=== PATIENT | male | born 1960 | race Caucasian/White ===

== ENCOUNTER 2021-10-30 18:32 | Inpatient (IN) ==
[2021-10-30] MEDS ORDERED: Ondansetron 4 MG/2 ML VIAL IVP PRN (20:27)
[2021-10-30] MEDS ORDERED: Naloxone 0.4 MG/ML INJ IVP PRN (20:27)
[2021-10-31] MEDS ORDERED: Ipratropium/Albuterol Neb 3 ML IH PRN (00:06)
[2021-10-31 05:50] LABS: Monocytes % 8.1 %; Segmented Neutrophils % 85.4 %
[2021-10-31 05:52] LABS: Basophils # 0.1 K/mcL (0.0-0.2); Basophils % 0.4 %; Hematocrit 41.4 % (37.5-50.1); Hemoglobin 13.8 g/dL (12.9-16.9); Immature Granulocytes % 1.4 % (0-4); Immature Platelets 9.4 % (1.1-6.1); Lymphocytes % 4.7 %; Mean Corpuscular HGB Conc 33.3 g/dL (31.6-35.5); Mean Corpuscular Hemoglobin 35.8 pg (28.0-33.3); Mean Corpuscular Volume 107.5 fL (83.0-100.0); Mean Platelet Volume 11.8 fL (9.4-12.4); Neutrophils # 20.8 K/mcL (1.6-8.9); Red Blood Count 3.85 M/mcL (4.19-5.50); Red Cell Distribution Width 15.3 % (11.5-14.5); White Blood Count 24.3 K/mcL (4.3-11.1)
[2021-10-31 05:54] LABS: Lymphocytes # 1.1 K/mcL (0.6-4.6); Platelet Count 58 K/mcL (140-400)
[2021-10-31 05:57] LABS: INR 2.1; Prothrombin Time 22.9 Seconds (9.4-12.1)
[2021-10-31 06:01] LABS: Estimated Average Glucose 80 mg/dl; Hemoglobin A1C 4.4 %
[2021-10-31] MEDS: Lactulose Oral Soln 20 GM/30 ML UDC PO SCH ×3 (06:12→20:40)
[2021-10-31 06:24] LABS: Albumin 2.9 g/dL (3.5-5.7); Bilirubin,Direct 2.5 mg/dL (0.0-0.2); Bilirubin,Total 6.5 mg/dL (0.3-1.0); Calcium 8.9 mg/dL (8.6-10.3); Globulin 2.9 g/dL (2.4-3.5); Magnesium 2.3 mg/dL (1.6-2.6); Potassium 5.1 mEq/L (3.5-5.1); Total Protein 5.8 g/dL (6.4-8.9)
[2021-10-31] MEDS ORDERED: cefTRIAXone 2,000 MG in 0.9 % Sodium Chloride 20 ML IVP SCH (09:00)
[2021-10-31] MEDS ORDERED: methylPREDNISolone 125 MG/2 ML VIAL IVP ONE (09:20)
[2021-10-31 10:22] LABS: Influenza A PCR Negative (Negative); Influenza B PCR Negative (Negative); Resp. Syncytial Virus PCR Negative (Negative)
[2021-10-31] MEDS: Ipratropium/Albuterol Neb 3 ML IH SCH ×2 (10:49→15:44)
[2021-10-31] MEDS ORDERED: Vancomycin 2,000 MG/520 ML IV.SOLN IVPB SCH (11:00)
[2021-10-31] MEDS ORDERED: *HR* LORazepam 2 MG/ML VIAL IVP PRN ×3 (11:03)
[2021-10-31 11:09] LABS: SARS-CoV-2 by PCR (In House) Negative (Negative)
[2021-10-31] MEDS: Folic Acid 1 MG TABLET PO SCH (11:30)
[2021-10-31] MEDS: Thiamine (B-1) 100 MG TABLET PO SCH (11:30)
[2021-10-31] MEDS: Nicotine 21 MG PATCH.TD24 TD SCH (12:24)
[2021-10-31 13:02] LABS: VBG HCO3 32 mEq/L (21-27); VBG PCO2 75 mmHg (41-51); VBG PH 7.25 pH Units (7.32-7.42); VBG PO2 103 mmHg (25-50)
[2021-10-31] MEDS: MethylPREDNISolone 40 MG/ML VIAL IVP SCH (15:14)
[2021-10-31] MEDS: Cefepime HCl 2,000 MG in 0.9 % Sodium Chloride Mini Bag 100 ML IVPB SCH (15:15)
[2021-10-31 15:33] LABS: VBG HCO3 33 mEq/L (21-27); VBG PCO2 77 mmHg (41-51); VBG PH 7.24 pH Units (7.32-7.42); VBG PO2 172 mmHg (25-50)
[2021-10-31] MEDS ORDERED: Piperacillin/Tazobactam 3.375 GM in 0.9 % Sodium Chloride Mini Bag 100 ML IVPB SCH (16:00)
[2021-10-31] MEDS ORDERED: Lactulose Oral Soln 20 GM/30 ML UDC PO ONE (16:13)
[2021-10-31 16:17] LABS: ABG Base Excess 2 mEq/L (-2 to 3); ABG HCO3 35 mEq/L (21-27); ABG Oxygen Saturation 94 % (95-98); ABG PCO2 98 mmHg (35-45); ABG PH 7.16 pH Units (7.32-7.45); ABG PO2 96 mmHg (85-104); ABG TCO2 38 mEq/L (20-26)
[2021-10-31 18:25] LABS: ABG Base Excess 3 mEq/L (-2 to 3); ABG HCO3 34 mEq/L (21-27); ABG Oxygen Saturation 93 % (95-98); ABG PCO2 83 mmHg (35-45); ABG PH 7.22 pH Units (7.32-7.45); ABG PO2 82 mmHg (85-104); ABG TCO2 37 mEq/L (20-26)
[2021-10-31] MEDS: Vancomycin 1,500 MG/265 ML IV.SOLN IVPB SCH (23:35)
[2021-10-31 23:50] LABS: ABG Base Excess 5 mEq/L (-2 to 3); ABG HCO3 35 mEq/L (21-27); ABG Oxygen Saturation 92 % (95-98); ABG PCO2 79 mmHg (35-45); ABG PH 7.25 pH Units (7.32-7.45); ABG PO2 78 mmHg (85-104); ABG TCO2 37 mEq/L (20-26); Blood Gas Modality AVAPS; Blood Gas VT 550 cc
[2021-11-01] MEDS: Cefepime HCl 2,000 MG in 0.9 % Sodium Chloride Mini Bag 100 ML IVPB SCH ×4 (01:25→23:02)
[2021-11-01] MEDS: MethylPREDNISolone 40 MG/ML VIAL IVP SCH ×4 (01:28→22:58)
[2021-11-01 03:21] LABS: Basophils % 0.4 %; Mean Corpuscular HGB Conc 33.2 g/dL (31.6-35.5)
[2021-11-01 03:23] LABS: Basophils # 0.1 K/mcL (0.0-0.2); Hematocrit 39.4 % (37.5-50.1); Hemoglobin 13.1 g/dL (12.9-16.9); Immature Granulocytes % 1.7 % (0-4); Immature Platelets 9.4 % (1.1-6.1); Lymphocytes # 0.7 K/mcL (0.6-4.6); Lymphocytes % 3.7 %; Mean Corpuscular Hemoglobin 35.8 pg (28.0-33.3); Mean Corpuscular Volume 107.7 fL (83.0-100.0); Mean Platelet Volume 11.8 fL (9.4-12.4); Monocytes # 0.9 K/mcL (0.0-1.3); Monocytes % 5.1 %; Neutrophils # 15.7 K/mcL (1.6-8.9); Red Blood Count 3.66 M/mcL (4.19-5.50); Red Cell Distribution Width 14.8 % (11.5-14.5); Segmented Neutrophils % 89.1 %; White Blood Count 17.6 K/mcL (4.3-11.1)
[2021-11-01 03:25] LABS: Platelet Count 64 K/mcL (140-400)
[2021-11-01] MEDS: Ipratropium/Albuterol Neb 3 ML IH SCH ×4 (03:33→22:56)
[2021-11-01 03:41] LABS: Albumin 2.8 g/dL (3.5-5.7); Albumin/Globulin Ratio 0.9 (1.1-2.2); Bilirubin,Total 5.9 mg/dL (0.3-1.0); Calcium 9.2 mg/dL (8.6-10.3); Potassium 4.9 mEq/L (3.5-5.1); Total Protein 5.8 g/dL (6.4-8.9)
[2021-11-01 07:56] LABS: ABG Base Excess 3 mEq/L (-2 to 3); ABG HCO3 31 mEq/L (21-27); ABG Oxygen Saturation 91 % (95-98); ABG PCO2 62 mmHg (35-45); ABG PH 7.31 pH Units (7.32-7.45); ABG PO2 69 mmHg (85-104); ABG TCO2 33 mEq/L (20-26)
[2021-11-01] MEDS: Lactulose Oral Soln 20 GM/30 ML UDC PO SCH ×3 (08:15→19:58)
[2021-11-01] MEDS: Thiamine (B-1) 100 MG TABLET PO SCH (08:17)
[2021-11-01] MEDS: Nicotine 21 MG PATCH.TD24 TD SCH (08:17)
[2021-11-01] MEDS: Folic Acid 1 MG TABLET PO SCH (08:17)
[2021-11-01] MEDS ORDERED: Iopamidol - 370 500 ML MLS IVP ONE (08:27)
[2021-11-01] MEDS: Furosemide 40 MG/4 ML VIAL IVP SCH ×2 (09:46→11:17)
[2021-11-01] MEDS ORDERED: Iopamidol - 370 500 ML MLS PO ONE (11:35)
[2021-11-01] MEDS: Vancomycin 1,500 MG/265 ML IV.SOLN IVPB SCH (12:16)
[2021-11-01 13:33] LABS: Amphetamine Screen,Urine Negative ng/mL (Cutoff=1000); Barbiturate Screen,Urine Negative ng/mL (Cutoff=200); Benzodiazepines Screen,Urine Negative ng/mL (Cutoff=200); Cannabinoid Screen,Urine Negative ng/mL (Cutoff = 50); Cocaine Screen,Urine Negative ng/mL (Cutoff= 300); Opiate Screen,Urine Negative ng/mL (Cutoff=300); Phencyclidine Screen,Urine Negative ng/mL (Cutoff=25)
[2021-11-01] MEDS ORDERED: 0.9 % Sodium Chloride 1,000 ML IVC SCH (14:30)
[2021-11-01] MEDS: *HR* LORazepam 2 MG/ML VIAL IVP SCH ×2 (15:12→22:56)
[2021-11-01] MEDS: MetroNIDAZOLE 500 MG/100 ML 500 MG/100 ML BAG IVPB SCH ×2 (15:20→22:55)
[2021-11-01 15:27] LABS: Hepatitis B Surface Antigen Nonreactive (Nonreactive)
[2021-11-01 15:55] LABS: Hepatitis C Virus Antibody Nonreactive (Nonreactive)
[2021-11-01 15:56] LABS: Hepatitis B Core IgM Nonreactive (Nonreactive)
[2021-11-01 15:58] LABS: Hepatitis A Antibody IgM Nonreactive (Nonreactive)
[2021-11-02] MEDS: Vancomycin 1,500 MG/265 ML IV.SOLN IVPB SCH ×3 (02:07→23:10)
[2021-11-02] MEDS: Ipratropium/Albuterol Neb 3 ML IH SCH ×4 (04:27→22:51)
[2021-11-02 06:06] LABS: Basophils # 0.1 K/mcL (0.0-0.2); Basophils % 0.5 %; Hematocrit 38.6 % (37.5-50.1); Hemoglobin 13.2 g/dL (12.9-16.9); Immature Granulocytes % 3.8 % (0-4); Lymphocytes # 0.9 K/mcL (0.6-4.6); Lymphocytes % 3.8 %; Mean Corpuscular HGB Conc 34.2 g/dL (31.6-35.5); Mean Corpuscular Volume 105.2 fL (83.0-100.0); Mean Platelet Volume 11.8 fL (9.4-12.4); Monocytes # 1.1 K/mcL (0.0-1.3); Neutrophils # 19.4 K/mcL (1.6-8.9); Platelet Count 81 K/mcL (140-400); Red Blood Count 3.67 M/mcL (4.19-5.50); Red Cell Distribution Width 14.7 % (11.5-14.5); Segmented Neutrophils % 86.9 %; White Blood Count 22.3 K/mcL (4.3-11.1)
[2021-11-02 06:24] LABS: Albumin 2.8 g/dL (3.5-5.7); Albumin/Globulin Ratio 0.9 (1.1-2.2); Bilirubin,Total 5.7 mg/dL (0.3-1.0); Calcium 9.3 mg/dL (8.6-10.3); Globulin 3.1 g/dL (2.4-3.5); Magnesium 2.9 mg/dL (1.6-2.6); Total Protein 5.9 g/dL (6.4-8.9)
[2021-11-02] MEDS: Thiamine (B-1) 100 MG TABLET PO SCH (08:51)
[2021-11-02] MEDS: *HR* LORazepam 0.5 MG TABLET PO SCH ×3 (08:51→21:10)
[2021-11-02] MEDS: Lactulose Oral Soln 20 GM/30 ML UDC PO SCH ×3 (08:51→21:10)
[2021-11-02] MEDS: predniSONE 20 MG TABLET PO SCH (08:51)
[2021-11-02] MEDS: Aspirin Enteric Coated 81 MG Tablet PO SCH (08:51)
[2021-11-02] MEDS: Folic Acid 1 MG TABLET PO SCH (08:52)
[2021-11-02] MEDS: Cefepime HCl 2,000 MG in 0.9 % Sodium Chloride Mini Bag 100 ML IVPB SCH ×3 (08:52→23:09)
[2021-11-02] MEDS: Nicotine 21 MG PATCH.TD24 TD SCH (08:52)
[2021-11-02] MEDS: MetroNIDAZOLE 500 MG/100 ML 500 MG/100 ML BAG IVPB SCH ×3 (08:53→23:09)
[2021-11-03] MEDS: Ipratropium/Albuterol Neb 3 ML IH SCH ×4 (04:09→22:45)
[2021-11-03] MEDS: Furosemide 40 MG/4 ML VIAL IVP SCH ×2 (09:25→16:02)
[2021-11-03] MEDS: Thiamine (B-1) 100 MG TABLET PO SCH (09:28)
[2021-11-03] MEDS: predniSONE 20 MG TABLET PO SCH (09:28)
[2021-11-03] MEDS: *HR* LORazepam 0.5 MG TABLET PO SCH ×3 (09:29→21:00)
[2021-11-03] MEDS: Aspirin Enteric Coated 81 MG Tablet PO SCH (09:29)
[2021-11-03] MEDS: Cefepime HCl 2,000 MG in 0.9 % Sodium Chloride Mini Bag 100 ML IVPB SCH ×3 (09:30→23:52)
[2021-11-03] MEDS: Lactulose Oral Soln 20 GM/30 ML UDC PO SCH ×3 (09:31→21:00)
[2021-11-03] MEDS: MetroNIDAZOLE 500 MG/100 ML 500 MG/100 ML BAG IVPB SCH ×2 (09:31→17:56)
[2021-11-03] MEDS: Nicotine 21 MG PATCH.TD24 TD SCH (09:31)
[2021-11-03] MEDS: Folic Acid 1 MG TABLET PO SCH (09:37)
[2021-11-03 10:40] LABS: Basophils # 0.1 K/mcL (0.0-0.2); Basophils % 0.5 %; Hematocrit 38.1 % (37.5-50.1); Hemoglobin 13.2 g/dL (12.9-16.9); Immature Granulocytes % 3.6 % (0-4); Immature Platelets 8.4 % (1.1-6.1); Lymphocytes # 0.9 K/mcL (0.6-4.6); Lymphocytes % 5.3 %; Mean Corpuscular HGB Conc 34.6 g/dL (31.6-35.5); Mean Corpuscular Volume 101.1 fL (83.0-100.0); Mean Platelet Volume 11.3 fL (9.4-12.4); Monocytes # 1.4 K/mcL (0.0-1.3); Monocytes % 8.2 %; Red Blood Count 3.77 M/mcL (4.19-5.50); Red Cell Distribution Width 14.7 % (11.5-14.5); Segmented Neutrophils % 82.4 %
[2021-11-03 10:42] LABS: Platelet Count 79 K/mcL (140-400)
[2021-11-03 10:57] LABS: BUN/Creatinine Ratio 51 (6-26); Blood Urea Nitrogen 39 mg/dL (8-23); Calcium 9.1 mg/dL (8.6-10.3); Carbon Dioxide 34 mEq/L (23-29); Chloride 103 mEq/L (98-107); Glucose 186 mg/dL (70-105); Osmolality,Calculated 298 (280-300); Potassium 4.6 mEq/L (3.5-5.1); Sodium 137 mEq/L (136-145)
[2021-11-03 10:58] LABS: Albumin 2.7 g/dL (3.5-5.7); Bilirubin,Direct 2.2 mg/dL (0.0-0.2); Bilirubin,Indirect 3.9 mg/dL (0.0-1.0); Bilirubin,Total 6.1 mg/dL (0.3-1.0); Total Protein 5.8 g/dL (6.4-8.9)
[2021-11-03 10:59] LABS: Albumin/Globulin Ratio 0.9 (1.1-2.2); Globulin 3.1 g/dL (2.4-3.5)
[2021-11-03 11:01] LABS: Magnesium 2.4 mg/dL (1.6-2.6)
[2021-11-03] MEDS: Vancomycin 1,500 MG/265 ML IV.SOLN IVPB SCH ×2 (13:50→23:52)
[2021-11-04] MEDS: MetroNIDAZOLE 500 MG/100 ML 500 MG/100 ML BAG IVPB SCH ×3 (00:41→15:51)
[2021-11-04] MEDS: Ipratropium/Albuterol Neb 3 ML IH SCH ×4 (04:19→21:52)
[2021-11-04 06:24] LABS: Eosinophils % 0.1 %; Hemoglobin 12.8 g/dL (12.9-16.9); Red Cell Distribution Width 15.2 % (11.5-14.5)
[2021-11-04 06:26] LABS: Basophils # 0.1 K/mcL (0.0-0.2); Basophils % 0.6 %; Hematocrit 37.6 % (37.5-50.1); Immature Granulocytes % 4.2 % (0-4); Immature Platelets 8.2 % (1.1-6.1); Lymphocytes # 1.3 K/mcL (0.6-4.6); Lymphocytes % 6.9 %; Mean Corpuscular Hemoglobin 34.7 pg (28.0-33.3); Mean Corpuscular Volume 101.9 fL (83.0-100.0); Mean Platelet Volume 11.6 fL (9.4-12.4); Monocytes # 1.6 K/mcL (0.0-1.3); Monocytes % 8.9 %; Neutrophils # 14.6 K/mcL (1.6-8.9); Red Blood Count 3.69 M/mcL (4.19-5.50); Segmented Neutrophils % 79.3 %; White Blood Count 18.4 K/mcL (4.3-11.1)
[2021-11-04 06:32] LABS: Platelet Count 84 K/mcL (140-400)
[2021-11-04 06:38] LABS: Alanine Aminotransferase 77 Units/L (7-52); Albumin 2.6 g/dL (3.5-5.7); Albumin/Globulin Ratio 0.9 (1.1-2.2); Alkaline Phosphatase 212 Units/L (34-104); Aspartate Amino Transferase 97 Units/L (13-39); BUN/Creatinine Ratio 41 (6-26); Bilirubin,Indirect 4.1 mg/dL (0.0-1.0); Bilirubin,Total 6.1 mg/dL (0.3-1.0); Blood Urea Nitrogen 35 mg/dL (8-23); Calcium 9.2 mg/dL (8.6-10.3); Carbon Dioxide 39 mEq/L (23-29); Chloride 104 mEq/L (98-107); Glucose 129 mg/dL (70-105); Osmolality,Calculated 304 (280-300); Potassium 4.8 mEq/L (3.5-5.1); Sodium 142 mEq/L (136-145); Total Protein 5.6 g/dL (6.4-8.9)
[2021-11-04 06:39] LABS: Magnesium 2.3 mg/dL (1.6-2.6)
[2021-11-04] MEDS: Folic Acid 1 MG TABLET PO SCH (08:29)
[2021-11-04] MEDS: Aspirin Enteric Coated 81 MG Tablet PO SCH (08:29)
[2021-11-04] MEDS: *HR* LORazepam 0.5 MG TABLET PO SCH ×3 (08:29→22:21)
[2021-11-04] MEDS: predniSONE 20 MG TABLET PO SCH (08:29)
[2021-11-04] MEDS: Thiamine (B-1) 100 MG TABLET PO SCH (08:29)
[2021-11-04] MEDS: Cefepime HCl 2,000 MG in 0.9 % Sodium Chloride Mini Bag 100 ML IVPB SCH ×2 (08:29→15:49)
[2021-11-04] MEDS: Lactulose Oral Soln 20 GM/30 ML UDC PO SCH ×3 (08:30→22:21)
[2021-11-04] MEDS: Nicotine 21 MG PATCH.TD24 TD SCH (08:31)
[2021-11-04] MEDS: Furosemide 40 MG/4 ML VIAL IVP SCH ×2 (08:52→17:21)
[2021-11-04] MEDS: Vancomycin 1,500 MG/265 ML IV.SOLN IVPB SCH (13:01)
[2021-11-04] MEDS: polyethylene glycoL 3350 17 GM POWD.PACK PO SCH ×2 (15:49→22:21)
[2021-11-05] MEDS: Cefepime HCl 2,000 MG in 0.9 % Sodium Chloride Mini Bag 100 ML IVPB SCH ×2 (00:05→08:33)
[2021-11-05] MEDS: Vancomycin 1,500 MG/265 ML IV.SOLN IVPB SCH ×3 (00:06→13:18)
[2021-11-05] MEDS: MetroNIDAZOLE 500 MG/100 ML 500 MG/100 ML BAG IVPB SCH ×2 (01:10→08:34)
[2021-11-05] MEDS: Ipratropium/Albuterol Neb 3 ML IH SCH ×4 (04:07→21:26)
[2021-11-05 05:53] LABS: Basophils # 0.1 K/mcL (0.0-0.2); Basophils % 0.6 %; Eosinophils # 0.1 K/mcL (0.0-0.6); Eosinophils % 0.3 %; Hemoglobin 12.5 g/dL (12.9-16.9); Immature Granulocytes % 4.6 % (0-4); Lymphocytes # 1.6 K/mcL (0.6-4.6); Lymphocytes % 9.2 %; Mean Corpuscular HGB Conc 33.8 g/dL (31.6-35.5); Mean Corpuscular Hemoglobin 34.9 pg (28.0-33.3); Mean Corpuscular Volume 103.4 fL (83.0-100.0); Mean Platelet Volume 11.6 fL (9.4-12.4); Monocytes # 1.2 K/mcL (0.0-1.3); Monocytes % 6.8 %; Red Blood Count 3.58 M/mcL (4.19-5.50); Red Cell Distribution Width 15.8 % (11.5-14.5); Segmented Neutrophils % 78.5 %; White Blood Count 17.1 K/mcL (4.3-11.1)
[2021-11-05 05:53] LABS: VBG HCO3 36 mEq/L (21-27); VBG PCO2 67 mmHg (41-51); VBG PH 7.34 pH Units (7.32-7.42); VBG PO2 56 mmHg (25-50)
[2021-11-05 05:55] LABS: Neutrophils # 13.4 K/mcL (1.6-8.9); Platelet Count 83 K/mcL (140-400)
[2021-11-05 06:28] LABS: Alanine Aminotransferase 69 Units/L (7-52); Albumin 2.5 g/dL (3.5-5.7); Albumin/Globulin Ratio 0.8 (1.1-2.2); Alkaline Phosphatase 204 Units/L (34-104); Aspartate Amino Transferase 81 Units/L (13-39); BUN/Creatinine Ratio 39 (6-26); Bilirubin,Direct 2.1 mg/dL (0.0-0.2); Bilirubin,Indirect 4.9 mg/dL (0.0-1.0); Blood Urea Nitrogen 35 mg/dL (8-23); Calcium 9.1 mg/dL (8.6-10.3); Carbon Dioxide 40 mEq/L (23-29); Chloride 100 mEq/L (98-107); Globulin 3.1 g/dL (2.4-3.5); Glucose 146 mg/dL (70-105); Osmolality,Calculated 299 (280-300); Sodium 139 mEq/L (136-145); Total Protein 5.6 g/dL (6.4-8.9)
[2021-11-05 08:22] LABS: Magnesium 2.2 mg/dL (1.6-2.6); Phosphorous 2.4 mg/dL (2.7-4.5)
[2021-11-05] MEDS: Lactulose Oral Soln 20 GM/30 ML UDC PO SCH ×3 (08:32→21:43)
[2021-11-05] MEDS: predniSONE 20 MG TABLET PO SCH (08:33)
[2021-11-05] MEDS: Folic Acid 1 MG TABLET PO SCH (08:33)
[2021-11-05] MEDS: *HR* LORazepam 0.5 MG TABLET PO SCH ×2 (08:33→21:43)
[2021-11-05] MEDS: Aspirin Enteric Coated 81 MG Tablet PO SCH (08:33)
[2021-11-05] MEDS: Thiamine (B-1) 100 MG TABLET PO SCH (08:33)
[2021-11-05] MEDS: polyethylene glycoL 3350 17 GM POWD.PACK PO SCH ×2 (08:34→21:43)
[2021-11-05] MEDS: Nicotine 21 MG PATCH.TD24 TD SCH (08:35)
[2021-11-05] MEDS: Furosemide 40 MG/4 ML VIAL IVP SCH ×2 (08:52→17:45)
[2021-11-05] MEDS ORDERED: D5% in Water 1,000 ML IVC PRN (17:21)
[2021-11-05] MEDS ORDERED: Dextrose Gel 15 GM/37.5 ML TUBE PO PRN ×2 (17:21)
[2021-11-05] MEDS ORDERED: *HR* Dextrose 50 % in Water (Syg) 50 ML SYRINGE IVP PRN (17:21)
[2021-11-06] MEDS: Vancomycin 1,500 MG/265 ML IV.SOLN IVPB SCH ×2 (02:00→12:34)
[2021-11-06] MEDS: Ipratropium/Albuterol Neb 3 ML IH SCH ×4 (03:30→22:07)
[2021-11-06 04:55] LABS: Albumin 2.5 g/dL (3.5-5.7); Albumin/Globulin Ratio 0.8 (1.1-2.2); Bilirubin,Direct 2.3 mg/dL (0.0-0.2); Bilirubin,Indirect 6.1 mg/dL (0.0-1.0); Bilirubin,Total 8.4 mg/dL (0.3-1.0); Total Protein 5.5 g/dL (6.4-8.9)
[2021-11-06] MEDS: Aspirin Enteric Coated 81 MG Tablet PO SCH (08:51)
[2021-11-06] MEDS: Thiamine (B-1) 100 MG TABLET PO SCH (08:51)
[2021-11-06] MEDS: *HR* LORazepam 0.5 MG TABLET PO SCH (08:51)
[2021-11-06] MEDS: Folic Acid 1 MG TABLET PO SCH (08:51)
[2021-11-06] MEDS: predniSONE 20 MG TABLET PO SCH (08:52)
[2021-11-06] MEDS: Nicotine 21 MG PATCH.TD24 TD SCH (08:52)
[2021-11-06] MEDS: Lactulose Oral Soln 20 GM/30 ML UDC PO SCH ×3 (12:33→20:21)
[2021-11-06] MEDS: polyethylene glycoL 3350 17 GM POWD.PACK PO SCH ×2 (12:34→20:21)
[2021-11-06 18:05] LABS: Basophils # 0.1 K/mcL (0.0-0.2); Basophils % 0.4 %; Eosinophils # 0.1 K/mcL (0.0-0.6); Eosinophils % 0.8 %; Hematocrit 36.9 % (37.5-50.1); Hemoglobin 12.3 g/dL (12.9-16.9); Immature Granulocytes % 2.7 % (0-4); Lymphocytes % 7.4 %; Mean Corpuscular HGB Conc 33.3 g/dL (31.6-35.5); Mean Corpuscular Hemoglobin 34.8 pg (28.0-33.3); Mean Corpuscular Volume 104.5 fL (83.0-100.0); Mean Platelet Volume 12.2 fL (9.4-12.4); Monocytes # 0.8 K/mcL (0.0-1.3); Monocytes % 6.4 %; Neutrophils # 10.5 K/mcL (1.6-8.9); Red Blood Count 3.53 M/mcL (4.19-5.50); Red Cell Distribution Width 15.9 % (11.5-14.5); Segmented Neutrophils % 82.3 %; White Blood Count 12.8 K/mcL (4.3-11.1)
[2021-11-06 18:06] LABS: Platelet Count 81 K/mcL (140-400)
[2021-11-06 18:15] LABS: INR 2.5; Prothrombin Time 27.2 Seconds (9.4-12.1)
[2021-11-06 18:28] LABS: BUN/Creatinine Ratio 40 (6-26); Blood Urea Nitrogen 34 mg/dL (8-23); Carbon Dioxide 39 mEq/L (23-29); Chloride 100 mEq/L (98-107); Glucose 188 mg/dL (70-105); Osmolality,Calculated 297 (280-300); Potassium 4.8 mEq/L (3.5-5.1); Sodium 137 mEq/L (136-145)
[2021-11-07] MEDS: Ipratropium/Albuterol Neb 3 ML IH SCH ×4 (04:30→23:03)
[2021-11-07 05:21] LABS: Basophils # 0.1 K/mcL (0.0-0.2); Basophils % 0.4 %; Eosinophils # 0.3 K/mcL (0.0-0.6); Hematocrit 35.7 % (37.5-50.1); Immature Granulocytes % 2.3 % (0-4); Immature Platelets 11.1 % (1.1-6.1); Lymphocytes # 1.7 K/mcL (0.6-4.6); Lymphocytes % 10.2 %; Mean Corpuscular HGB Conc 33.6 g/dL (31.6-35.5); Mean Corpuscular Hemoglobin 34.6 pg (28.0-33.3); Mean Corpuscular Volume 102.9 fL (83.0-100.0); Mean Platelet Volume 11.9 fL (9.4-12.4); Monocytes # 1.2 K/mcL (0.0-1.3); Monocytes % 7.2 %; Neutrophils # 12.6 K/mcL (1.6-8.9); Red Blood Count 3.47 M/mcL (4.19-5.50); Red Cell Distribution Width 15.8 % (11.5-14.5); Segmented Neutrophils % 77.9 %; White Blood Count 16.2 K/mcL (4.3-11.1)
[2021-11-07 05:22] LABS: Platelet Count 78 K/mcL (140-400)
[2021-11-07 05:33] LABS: Alanine Aminotransferase 56 Units/L (7-52); Albumin 2.4 g/dL (3.5-5.7); Albumin/Globulin Ratio 0.8 (1.1-2.2); Alkaline Phosphatase 163 Units/L (34-104); Aspartate Amino Transferase 67 Units/L (13-39); BUN/Creatinine Ratio 42 (6-26); Bilirubin,Direct 2.8 mg/dL (0.0-0.2); Bilirubin,Indirect 7.2 mg/dL (0.0-1.0); Blood Urea Nitrogen 32 mg/dL (8-23); Carbon Dioxide 36 mEq/L (23-29); Chloride 99 mEq/L (98-107); Globulin 3.1 g/dL (2.4-3.5); Glucose 130 mg/dL (70-105); Osmolality,Calculated 293 (280-300); Potassium 4.6 mEq/L (3.5-5.1); Sodium 137 mEq/L (136-145); Total Protein 5.5 g/dL (6.4-8.9)
[2021-11-07] MEDS: Aspirin Enteric Coated 81 MG Tablet PO SCH (08:47)
[2021-11-07] MEDS: Thiamine (B-1) 100 MG TABLET PO SCH (08:47)
[2021-11-07] MEDS: Folic Acid 1 MG TABLET PO SCH (08:47)
[2021-11-07] MEDS: *HR* LORazepam 0.5 MG TABLET PO SCH (08:47)
[2021-11-07] MEDS: predniSONE 20 MG TABLET PO SCH (08:47)
[2021-11-07] MEDS: Nicotine 21 MG PATCH.TD24 TD SCH (08:48)
[2021-11-07] MEDS: polyethylene glycoL 3350 17 GM POWD.PACK PO SCH ×2 (08:48→21:22)
[2021-11-07] MEDS: Lactulose Oral Soln 20 GM/30 ML UDC PO SCH ×3 (08:48→21:22)
[2021-11-07] MEDS ORDERED: methylPREDNISolone 4 MG TABLET PO ONE (09:17)
[2021-11-08 02:12] LABS: Basophils % 0.2 %; Hematocrit 33.3 % (37.5-50.1); Red Cell Distribution Width 15.9 % (11.5-14.5)
[2021-11-08 02:14] LABS: Eosinophils # 0.3 K/mcL (0.0-0.6); Eosinophils % 2.2 %; Hemoglobin 11.2 g/dL (12.9-16.9); Immature Granulocytes % 1.5 % (0-4); Immature Platelets 11.4 % (1.1-6.1); Lymphocytes # 1.4 K/mcL (0.6-4.6); Lymphocytes % 11.4 %; Mean Corpuscular HGB Conc 33.6 g/dL (31.6-35.5); Mean Corpuscular Hemoglobin 34.8 pg (28.0-33.3); Mean Corpuscular Volume 103.4 fL (83.0-100.0); Mean Platelet Volume 12.4 fL (9.4-12.4); Monocytes # 1.1 K/mcL (0.0-1.3); Monocytes % 8.7 %; Neutrophils # 9.5 K/mcL (1.6-8.9); Red Blood Count 3.22 M/mcL (4.19-5.50); White Blood Count 12.5 K/mcL (4.3-11.1)
[2021-11-08 02:32] LABS: Platelet Count 67 K/mcL (140-400)
[2021-11-08 02:36] LABS: Alanine Aminotransferase 50 Units/L (7-52); Albumin 2.3 g/dL (3.5-5.7); Albumin/Globulin Ratio 0.8 (1.1-2.2); Alkaline Phosphatase 180 Units/L (34-104); Aspartate Amino Transferase 60 Units/L (13-39); BUN/Creatinine Ratio 34 (6-26); Bilirubin,Direct 2.6 mg/dL (0.0-0.2); Bilirubin,Indirect 6.1 mg/dL (0.0-1.0); Bilirubin,Total 8.7 mg/dL (0.3-1.0); Blood Urea Nitrogen 27 mg/dL (8-23); Calcium 8.7 mg/dL (8.6-10.3); Carbon Dioxide 39 mEq/L (23-29); Chloride 98 mEq/L (98-107); Globulin 2.9 g/dL (2.4-3.5); Glucose 144 mg/dL (70-105); Lactate Dehydrogenase 174 Units/L (140-271); Osmolality,Calculated 290 (280-300); Potassium 4.8 mEq/L (3.5-5.1); Sodium 136 mEq/L (136-145); Total Protein 5.2 g/dL (6.4-8.9)
[2021-11-08] MEDS: Ipratropium/Albuterol Neb 3 ML IH SCH ×2 (04:05→10:59)
[2021-11-08] MEDS: Lactulose Oral Soln 20 GM/30 ML UDC PO SCH (07:58)
[2021-11-08] MEDS: Thiamine (B-1) 100 MG TABLET PO SCH (07:59)
[2021-11-08] MEDS: Folic Acid 1 MG TABLET PO SCH (08:00)
[2021-11-08] MEDS: Aspirin Enteric Coated 81 MG Tablet PO SCH (08:00)
[2021-11-08] MEDS: polyethylene glycoL 3350 17 GM POWD.PACK PO SCH (08:00)
[2021-11-08] MEDS: *HR* LORazepam 0.5 MG TABLET PO SCH (08:00)
[2021-11-08] MEDS: Nicotine 21 MG PATCH.TD24 TD SCH (08:01)
[2021-11-08] MEDS ORDERED: predniSONE 10 MG TABLET PO SCH (09:00)
[2021-11-08] MEDS ORDERED: methylPREDNISolone 4 MG TABLET PO SCH (09:00)
[2021-11-08 10:34] LABS: Influenza A PCR Negative (Negative); Influenza B PCR Negative (Negative); Resp. Syncytial Virus PCR Negative (Negative)
[2021-11-08 10:37] LABS: SARS-CoV-2 by PCR (In House) Negative (Negative)
[2021-11-08 11:00] VITALS: BP 145/77; PULSE 74; TEMP 97.9; O2SAT 94
== END 2021-11-08 14:41 | DRG 432 ==
LOC: 3ANU → SUATTDRO 20:44 → 2NNU 10-31 18:48 → 2ANU 11-03 00:25
PROVIDERS: ADMIT Internal Medicine; ATTEND Internal Medicine